=== PATIENT | male | born 1960 | race Caucasian/White ===

== ENCOUNTER 2017-05-01 04:18 | Emergency (ER) | payer OTHER, SELFPAY ==
[2017-05-01 04:58] LABS: #Basophils 0.1 thou/uL (0.0-0.2); #Eosinphils 0.1 thou/uL (0.0-0.7); #Lymphocytes 1.1 thou/uL (1.20-3.40); #Monocytes 0.7 thou/uL (0.11-0.59); #Neutrophils 13.6 thou/uL (1.40-6.50); %Basophils 0.5 % (0.0-1.0); %Eosinophils 0.3 % (0.0-10.0); %Lymphocytes 7.3 % (21.0-51.0); %Monocytes 4.3 % (0.0-10.0); %Neutrophils 87.6 % (42.0-75.0); Hemoglobin 13.3 g/dL (14.0-18.0); INR-International Normal Ratio 1.1; Mean Corpuscular HGB CONC 33.9 g/dL (32.0-36.0); Mean Corpuscular Hemoglobin 31.1 pg (27.0-31.0); Mean Corpuscular Volume 91.7 fl (80.0-94.0); Mean Platelet Volume 6.9 fL (7.4-10.4); PTT 33.1 SEC (22.9-36.1); Platelet Count 300 thou/uL (130-400); Prothrombin Time 14.3 SEC (12.0-14.7); RBC Distribution Width 14.5 % (11.5-14.5); Red Blood Cell (RBC) Count 4.28 mill/uL (4.70-6.10); White Blood Cell (WBC) Count 15.5 thou/uL (4.8-10.8)
[2017-05-01] MEDS ORDERED: Albuterol Sulfate 1.25 MG/3 ML NEB ONE (04:58)
[2017-05-01 05:04] LABS: Lactic Acid 2.6 mmol/L (0.5-2.2)
[2017-05-01 05:12] LABS: ALT (SGPT) 32 U/L (8-55); AST (SGOT) 19 U/L (5-34); Albumin 3.7 g/dL (3.5-5.0); Alkaline Phosphatase 104 U/L (40-150); Anion Gap 21 mmol/L (10-20); BUN (Urea Nitrogen) 12 mg/dL (8.4-25.7); Bilirubin, Total 0.3 mg/dL (0.2-1.2); Calc. Creatinine Clearance 0 mL/min (70-130); Calcium 8.7 mg/dL (7.8-10.44); Carbon Dioxide 12 mmol/L (22-29); Chloride 99 mmol/L (98-107); Estimated GFR-MDRD Greater than 90; Globulin 2.5 g/dL (2.4-3.5); Glucose 198 mg/dL (70-105); Lipase 70 U/L (8-78); Potassium 3.5 mmol/L (3.5-5.1); Protein, Total 6.2 g/dL (6.0-8.3); Sodium 128 mmol/L (136-145)
[2017-05-01] MEDS ORDERED: cefTRIAXone\\ROCEPHIN 2 GM VIAL ONE (05:15)
[2017-05-01 05:23] LABS: Clarity Cloudy (Clear)
[2017-05-01 05:24] LABS: Bilirubin Negative (Negative); Blood, Urine Large (Negative); Glucose, Urine (Dipstick) Negative (Negative); Icto Negative (Negative); Leukocyte Small (Negative); Nitrite Negative (Negative); Protein, Urine (Dipstick) > or equal to 300 mg/dL (Neg-Trace); Specific Gravity, Urine 1.024 (1.002-1.036)
[2017-05-01 05:27] LABS: RBC/HPF GREATER THAN 50-TNTC HPF (0-3)
[2017-05-01 05:28] LABS: Bacteria/HPF 2+ HPF (None Seen); Squamous Epithelial 0-3 HPF (0-3)
[2017-05-01 05:29] LABS: Crystals/HPF 2+ CA OXALATE HPF (Negative)
[2017-05-01 06:00] LABS: Base Excess -5.7 mEq/L (-2 - +2)
[2017-05-01] MEDS ORDERED: Sodium Chloride 0.9% 1,000 ML BAG ONE (06:48)
[2017-05-01] MEDS ORDERED: Sodium Chloride 0.9% 100 ML BAG ONE (06:48)
--- NOTE | 2017-05-01 07:41 | CT ---
PRELIMINARY REPORT/[facility]/EMERGENCY AFTER HOURS PROCEDURE: EXAM: CT Head Without Intravenous Contrast CLINICAL HISTORY: 56 years old, male; Injury or trauma; Injury Alterred loc; Asp suspect, HX of head trauma; Initial e ncounter; Concussion / head injury; Consciousness not specified TECHNIQUE: Axial computed tomography images of the head/brain without intravenous contrast. EXAM DATE/TIME: Exam ordered 05/01/2017 4:42 AM COMPARISON: No relevant prior studies available. FINDINGS: Brain: There is a focal basal ganglia hypodensity consistent with a remote lacunar infarction. There are nonspecific areas of hypoattenuation within the parafalcine parietal white matter suggestive of chronic microvascular ischemic change. No hemorrhage. Ventricles: Normal. No ventriculomegaly. Bones/joints: Normal. No acute fracture. Soft tissues: Normal. Sinuses: Unremarkable as visualized. No acute sinusitis. Mastoid air cells: Unremarkable as visualized. No mastoid effusion. IMPRESSION: No acute intracranial hemorrhage. Thank you for allowing us to participate in the care of your patient. Dictated and Authenticated by: Romario Sánchez MD 05/01/2017 5:38 AM Central Time ([place] \T\ [place]) FINAL REPORT CT BRAIN WITHOUT CONTRAST: Date: 05/01/17 COMPARISON: 02/02/17. FINDINGS/IMPRESSION: I agree with the findings and impression given in the preliminary report per [facility] physician. No evid ence of acute intracranial abnormality. POS: [facility]
--- NOTE | 2017-05-01 07:45 | CT ---
PRELIMINARY REPORT/[facility]/EMERGENCY AFTER HOURS PROCEDURE: EXAM: CT Cervical Spine Without Intravenous Contrast CLINICAL HISTORY: 56 years old, male; Injury or trauma; Initial encounter; Sprain or strain, cervical ligaments TECHNIQUE: Axial computed tomography images of the cervical spine without intravenous contrast. EXAM DATE/TIME: Exam ordered 05/01/2017 4:46 AM COMPARISON: No relevant prior studies available. FINDINGS: Vertebrae: No acute cervical spine fracture is identified. There is motion artifact at C3 accounting for an apparent step-off deformity. Discs/spinal canal/neural foramina: No acute findings. No spinal canal stenosis. Other bones/joints: There are large fracture deformities of the bilateral clavicles with overlying c allus formation. Soft tissues: Normal. Lung apices: Unremarkable as visualized. IMPRESSION: 1. No acute cervical spine fracture is identified. 2. There are large fracture deformities of the bilateral clavicles with overlying callus formation. Findings were discussed with STEVE KOLB at 05/01/2017 6:00 AM CDT. Thank you for allowing us to participate in the care of your patient. Dictated and Authenticated by: Romario Sánchez MD 05/01/2017 6:00 AM Central Time ([place] \T\ [place]) FINAL REPORT CT CERVICAL SPINE: Date: 05/01/17 FINDINGS/IMPRESSION: I agree with the findings and impression given in the preliminary report per [facility] physician. 1. No evidence of acute osseous abnormality of the cervical spine. 2. Chronic healing bilateral clavicle fractures. POS: [facility]
--- NOTE | 2017-05-01 08:06 | CT ---
PRELIMINARY REPORT/[facility]/EMERGENCY AFTER HOURS PROCEDURE: EXAM: CT Chest With Intravenous Contrast CLINICAL HISTORY: 56 years old, male; Pain and signs and symptoms; Bloating; Abdominal pain; Generalized; Dyspnea; [facility] pain; On breathing TECHNIQUE: Axial computed tomography images of the chest with intravenous contrast. Coronal reformatted images were created and reviewed. CONTRAST: 93 mL of ISOVUE 370 administered intravenously. COMPARISON: No relevant prior studies available. FINDINGS: Lungs: There is bibasilar dependent atelectasis and/or scarring. Pleural space: Normal. No pneumothorax. No significant effusion. Heart: The cardiac structures are normal. No significant pericardial effusion. Mediastinum: There is nonspecific esophageal wall thickening. The trachea is normal. Bones/joints: There are healed right rib fractures.There are healed left rib fractures. There is a healed LEFT scapular fracture, incompletely visualized. The clavicles are excluded from view. No dis location. Soft tissues: Normal. Vasculature: The aorta is normal. The pulmonary arteries are not enlarged. Lymph nodes: Normal. No enlarged lymph nodes. IMPRESSION: 1. No definite acute thoracic pathology. 2. Innumerable old healed rib and scapular fractures. 3. Nonspecific esophageal wall thickening. EXAM: CT Abdomen and Pelvis With Intravenous Contrast CLINICAL HISTORY: 56 years old, male; Pain and signs and symptoms; Bloating; Abdominal pain; Generalized; Dyspnea; Chest pain; On breathing TECHNIQUE: Axial computed tomography images of the abdomen and pelvis with intravenous contrast. Coronal reformatted images were created and reviewed. CONTRAST: 93 mL of ISOVUE 370 administered intravenously. EXAM DATE/TIME: Exam ordered 05/01/2017 5:41 AM COMPARISON: No relevant prior studies available. FINDINGS: ABDOMEN: Liver: There are no focal liver lesions present. Gallbladder and bile ducts: The gallbladder is mildly distended up to 5.5 cm and there is trace gall bladder wall haziness. Finding is nonspecific however early acute cholecystitis is possible. Pancreas: The pancreas is normal. No ductal dilation. Spleen: The spleen is normal. Adrenals: The adrenal glands are normal. Kidneys and ureters: There is a simple cyst in the right kidney. There are bilateral nonobstructing renal pelvic calculi. Stomach and bowel: A gastrostomy tube is noted in the stomach which is distended with air. The duode num is unremarkable. The colon is distended with air No mucosal thickening. Appendix: No findings to suggest acute appendicitis. PELVIS: Bladder: The bladder is decompressed by a Sampson catheter but is otherwise normal. There is a small a mount of intraluminal air consistent with instrumentation. Reproductive: Unremarkable as visualized. ABDOMEN and PELVIS: Intraperitoneal space: Normal. No free air. No significant fluid collection. Bones/joints: No acute fracture. No dislocation. Soft tissues: Normal. Vasculature: Normal. No abdominal aortic aneurysm. Lymph nodes: Normal. No enlarged lymph nodes. IMPRESSION: 1. The gallbladder is mildly distended up to 5.5 cm and there is trace gallbladder wall haziness. Finding is nonspecific however early acute cholecystitis is possible. Consider further evaluation wi th RIGHT upper quadrant ultrasound if clinically warranted. 2. Nonspecific gaseous distention of the stomach and colon. (More syndrome?). Thank you for allowing us to participate in the care of your patient. Dictated and Authenticated by: Romario Sánchez MD 05/01/2017 6:25 AM Central Time ([place] \T\ [place]) FINAL REPORT CT CHEST WITH IV CONTRAST CT ABDOMEN WITH IV CONTRAST CT PELVIS WITH IV CONTRAST: Date: 05/01/17 FINDINGS/IMPRESSION: I agree with the preliminary report given by Ian. POS: [facility]
[2017-05-01] MEDS ORDERED: Iopamidol 370 76% 100 ML VIAL ONE (10:52)
== END 2017-05-01 05:55 | disposition short-term general hospital (02) ==
LOC: MADERS 04:18
DX: J69.0 Pneumonitis due to inhalation of food and vomit (principal); Z87.81 Personal history of (healed) traumatic fracture; Z87.440 Personal history of urinary (tract) infections; Z87.01 Personal history of pneumonia (recurrent); Z93.1 Gastrostomy status; Z96.0 Presence of urogenital implants; E11.9 Type 2 diabetes mellitus without complications; E03.9 Hypothyroidism, unspecified
CPT/HCPCS: 70450; 71260; 72125; 74177; 80053; 81003; 81015; 82805; 83605; 83690; 84443; 85025; 85610; 85730; 87040; 87077; 87086; 87186; 93005; 96365; J0696; J7050